=== PATIENT | female | born 1955 | race Caucasian/White ===

== ENCOUNTER 2017-03-01 13:00 | Outpatient (CLI) | payer OTHER ==
[~2017-03-01 13:00] MED LIST: CIPRO100 MG; LIPITOR20 MG; LISINOPRIL20 MG PO; LYRICA200 MG; MACROBID 100 M100 MG PO; PNEU16DI2; PROTONIX40 MG PO; TIGAN300 MG PO
== END 2017-03-01 13:24 | disposition home or self-care (01) ==
LOC: NUCLEAR 13:00
DX: N39.0 Urinary tract infection, site not specified (principal); N13.1 Hydronephrosis with ureteral stricture, not elsewhere classified
CPT/HCPCS: J1940; A9537; 78708

== ENCOUNTER 2018-03-25 07:40 | Outpatient (CLI) | payer OTHER | END 2018-03-25 08:43 | disposition home or self-care (01) | LOC: RAD 07:40 | DX: N20.0 Calculus of kidney (principal) ==

== ENCOUNTER 2018-03-25 08:34 | Outpatient (CLI) | payer OTHER | END 2018-03-25 08:51 | disposition home or self-care (01) | LOC: LAB 08:34 | DX: N13.1 Hydronephrosis with ureteral stricture, not elsewhere classified (principal) ==

== ENCOUNTER 2018-04-01 12:39 | Outpatient (CLI) | payer OTHER | END 2018-04-01 12:52 | disposition home or self-care (01) | LOC: NUCLEAR 12:39 | DX: N13.1 Hydronephrosis with ureteral stricture, not elsewhere classified (principal) | CPT/HCPCS: 78708; A9539; J1940 ==

== ENCOUNTER 2018-04-08 06:25 | Outpatient (CLI) | payer OTHER | END 2018-04-08 06:30 | disposition home or self-care (01) | LOC: LAB 06:25 | DX: N13.1 Hydronephrosis with ureteral stricture, not elsewhere classified (principal) ==

== ENCOUNTER 2018-04-08 07:06 | Outpatient (CLI) | payer OTHER | END 2018-04-08 07:30 | disposition home or self-care (01) | LOC: TOM 07:06 | DX: N13.1 Hydronephrosis with ureteral stricture, not elsewhere classified (principal) ==

== ENCOUNTER 2018-05-22 08:09 | Outpatient (CLI) | payer OTHER | END 2018-05-22 08:20 | disposition home or self-care (01) | LOC: TOM 08:09 | DX: K62.0 Anal polyp (principal); K56.51 Intestinal adhesions [bands], with partial obstruction ==

== ENCOUNTER 2020-05-16 07:42 | Emergency (ER) | payer OTHER ==
[~2020-05-16] VITALS: Ht 152.4 cm; Wt 68.0 kg
[2020-05-16] MEDS ORDERED: ZESTRIL40 M1 (08:06)
[2020-05-16] MEDS ORDERED: FORTAMET500 MG (08:07)
== END 2020-05-16 14:07 | disposition home or self-care (01) ==
LOC: ER 07:42
DX: M25.59 Pain in other specified joint (principal)

== ENCOUNTER → 2020-06-08 12:26 | Outpatient (CLI) | payer OTHER ==
[~2020-06-08 12:26] MED LIST changes: +FORTAMET500 MG; +ZESTRIL40 M1
== END | disposition home or self-care (01) ==
LOC: LAB 12:26
PROVIDERS: ATTEND Urology
DX: N30.00 Acute cystitis without hematuria (principal)

== ENCOUNTER 2022-05-24 11:09 | Outpatient (CLI) | payer OTHER | END 2022-05-24 11:10 | disposition home or self-care (01) | LOC: LAB 11:09 | PROVIDERS: ATTEND Urology | DX: N39.0 Urinary tract infection, site not specified (principal); N13.1 Hydronephrosis with ureteral stricture, not elsewhere classified ==

== ENCOUNTER 2022-06-06 12:44 | Outpatient (CLI) | payer OTHER | END 2022-06-06 12:47 | disposition home or self-care (01) | LOC: NUCLEAR 12:44 | PROVIDERS: ATTEND Urology | DX: N39.0 Urinary tract infection, site not specified (principal); N13.1 Hydronephrosis with ureteral stricture, not elsewhere classified | CPT/HCPCS: 78709; A9539; J1940 ==

== ENCOUNTER 2022-06-12 15:08 | Outpatient (CLI) | payer OTHER | END 2022-06-12 15:13 | disposition home or self-care (01) | LOC: LAB 15:08 | PROVIDERS: ATTEND Urology | DX: N13.1 Hydronephrosis with ureteral stricture, not elsewhere classified (principal) ==

== ENCOUNTER 2022-06-15 08:06 | Outpatient (CLI) | payer OTHER | END 2022-06-15 08:19 | disposition home or self-care (01) | LOC: LAB 08:06 | PROVIDERS: ATTEND Psychiatry & Neurology Neurology | DX: D55.0 Anemia due to glucose-6-phosphate dehydrogenase [G6PD] deficiency (principal); D50.8 Other iron deficiency anemias; E78.2 Mixed hyperlipidemia; N39.0 Urinary tract infection, site not specified; E03.9 Hypothyroidism, unspecified ==

== ENCOUNTER 2022-06-15 08:57 | Outpatient (CLI) | payer OTHER | END 2022-06-15 09:09 | disposition home or self-care (01) | LOC: TOM 08:57 | PROVIDERS: ATTEND Urology | DX: N13.1 Hydronephrosis with ureteral stricture, not elsewhere classified (principal) ==